=== PATIENT | female | born 1925 | race Caucasian/White ===

== ENCOUNTER 2017-06-28 15:12 | Inpatient (IN) | payer OTHER, BC ==
[~2017-06-28] VITALS: Ht 170.2 cm; Wt 90.6 kg
[~2017-06-28 15:12] MED LIST: ALPRAZOLAM0.25 M2 PO; AMBIEN5 MG PO; AMILORIDE HCL5 MG PO; APRESOLINE10 MG PO; APRESOLINE100 MG PO; ARMOUR THYROID60 M1 PO; ATORVASTATIN CA20 MG PO; Advair HFA 115/21 IH; CARAFATE1 GM PO; CATAPRES0.2 MG PO; CLONIDINE HCL0.1 MG PO; CLONIDINE HCL0.2 MG PO; Celexa PO; DELTASONE10 MG PO; DIAZEPAM5 MG PO; DILANTIN BRAND100 MG PO; HYDRALAZINE HCL10 MG PO; INDERAL LA80 MG PO; INDERAL80 MG PO; LEVAQUIN500 MG PO; LIPITOR20 MG PO; METRONIDAZOLE500 MG PO; NORVASC10 MG PO; OXYCONTIN PO; OXYIR5 MG PO; PREDNISONE10 MG PO; PRILOSEC40 MG PO; Proventil,Ventolin H IH; RESTORIL15 MG PO; SENOKOT,SENN1 TABLET PO; SYNTHROID150 MCG PO; VALIUM5 MG PO; VENTOLIN HFA18 GM IH; ZITHROMAX500 MG PO
[2017-06-28 16:00] LABS: BASOPHIL COUNT 0.2 K/uL (0-0.1); EOSINOPHIL (%) 3.7 % (0-5); EOSINOPHIL COUNT 0.5 K/uL (0-0.3); HEMATOCRIT 39.6 % (36.0-46.0); IMMATURE GRANULOCYTE (%) 0.3 % (0.0-0.7); INSTRUMENT ABS NEUTROPHIL CT 9.6 K/uL; LYMPHOCYTE COUNT 2.8 K/uL (1.0-2.8); MCH 28.2 PG (29.0-34.0); MCHC 31.8 G/DL (30.0-36.0); MCV 88.6 FL (83-99); MEAN PLAT.VOLUME 12.4 uM^3 (9.5-12.4); MONOCYTE (%) 4.5 % (3-12); MONOCYTE COUNT 0.6 K/uL (0-0.8); NEUTROPHIL (%) 69.9 % (45-76); NEUTROPHIL COUNT 9.6 K/uL (1.8-6.4); PLATELET COUNT 353 K/uL (156-360); RBC DIS.WIDTH-CV 14.8 % (11.8-14.6); RBC DIS.WIDTH-SD 47.7 % (39-53); RED BLOOD COUNT 4.47 M/uL (3.80-5.20); WHITE BLOOD COUNT 13.7 K/uL (4.1-10.2)
[2017-06-28 16:07] LABS: ADD MIUA? YES; BILIRUBIN NEGATIVE; BLOOD NEGATIVE; COLOR YELLOW ((YELLOW)); GLUCOSE (STRIP) NEGATIVE; KETONES NEGATIVE; LEUKOCYTES LARGE; NITRITE NEGATIVE; PROTEIN (STRIP) 30; SPECIFIC GRAVITY 1.016 (1.000-1.030); UROBILINOGEN 0.2 MG/DL (0.2-1.0)
[2017-06-28 16:13] LABS: CHLORIDE 105 mEq/L (99-109); POTASSIUM 4.5 mEq/L (3.7-5.4); SODIUM 139 mEq/L (136-147)
[2017-06-28 16:15] LABS: GLUCOSE 105 mg/dL (70-99)
[2017-06-28 16:17] LABS: ANION GAP 9 MEQ/L (2-14); TOTAL BILIRUBIN 0.3 mg/dL (0.0-1.0)
[2017-06-28 16:19] LABS: ALKALINE PHOSPHATASE 76 IU/L (3-129); GFR ESTIMATE (CALCULATED) 41 mL/min/
[2017-06-28 16:20] LABS: UREA NITROGEN (BUN) 32 mg/dL (9-23)
[2017-06-28 16:23] LABS: LIPASE 25 U/L (1.0-51.0)
[2017-06-28 16:23] LABS: EPITHELIAL CELLS 1+ /HPF; RED BLOOD CELLS RARE /HPF (0-5); WHITE BLOOD CELLS TNTC /HPF (0-5)
[2017-06-28 16:24] LABS: BACTERIA 3+ /HPF; CASTS PRESENT /LPF; CRYSTALS NONE SEEN; MUCUS NONE SEEN /LPF; UCUL ADDED? YES
[2017-06-28 16:25] LABS: HYALINE CASTS 0-5 /LPF
[2017-06-28] MEDS ORDERED: PROAIR HFA8.5 GM IH (17:44)
[2017-06-28] MEDS ORDERED: TYLENOL EXTRA500 MG PO (17:46)
[2017-06-28 18:36] VITALS: BP 171/79
[2017-06-28 22:56] VITALS: BP 133/58
[2017-06-29 03:18] VITALS: BP 119/55
[2017-06-29 05:39] LABS: HEMATOCRIT 36.5 % (36.0-46.0); MCH 28.3 PG (29.0-34.0); MCHC 30.7 G/DL (30.0-36.0); MCV 92.2 FL (83-99); RBC DIS.WIDTH-CV 14.9 % (11.8-14.6); RBC DIS.WIDTH-SD 50.9 % (39-53); RED BLOOD COUNT 3.96 M/uL (3.80-5.20); WHITE BLOOD COUNT 11.1 K/uL (4.1-10.2)
[2017-06-29 06:01] LABS: ANION GAP 6 MEQ/L (2-14); CHLORIDE 103 MEQ/L (99-109); GFR ESTIMATE (CALCULATED) 32 mL/min/; GLUCOSE 91 mg/dL (70-99); POTASSIUM 5.1 MEQ/L (3.7-5.4); SAMPLE HEMOLYSIS CHECK 0; SAMPLE ICTERIC CHECK 0; SAMPLE LIPEMIA CHECK 0; SODIUM 139 MEQ/L (136-147); UREA NITROGEN (BUN) 35 mg/dL (9-23)
[2017-06-29 07:05] LABS: HEMATOLOGY COMMENT 1 SMEAR COMPATIBLE; MEAN PLAT.VOLUME 12.5 uM^3 (9.5-12.4); PLAT.SUFFICIENCY ADEQUATE; PLATELET COUNT 312 K/uL (156-360)
[2017-06-29 07:45] VITALS: BP 143/63
[2017-06-29 12:36] VITALS: BP 137/71
[2017-06-29 16:34] VITALS: BP 143/79
[2017-06-29 20:00] VITALS: BP 145/67
[2017-06-30 00:03] VITALS: BP 112/55
[2017-06-30 04:31] VITALS: BP 156/66
[2017-06-30 05:49] LABS: HEMATOCRIT 34.1 % (36.0-46.0); MCHC 30.8 G/DL (30.0-36.0); MCV 90.9 FL (83-99); MEAN PLAT.VOLUME 12.4 uM^3 (9.5-12.4); PLATELET COUNT 309 K/uL (156-360); RBC DIS.WIDTH-CV 14.6 % (11.8-14.6); RBC DIS.WIDTH-SD 49.2 % (39-53); RED BLOOD COUNT 3.75 M/uL (3.80-5.20); WHITE BLOOD COUNT 11.8 K/uL (4.1-10.2)
[2017-06-30 06:12] LABS: ANION GAP 8 MEQ/L (2-14); CHLORIDE 104 MEQ/L (99-109); GFR ESTIMATE (CALCULATED) 32 mL/min/; GLUCOSE 92 mg/dL (70-99); SAMPLE HEMOLYSIS CHECK 0; SAMPLE ICTERIC CHECK 0; SAMPLE LIPEMIA CHECK 0; SODIUM 138 MEQ/L (136-147); UREA NITROGEN (BUN) 39 mg/dL (9-23)
[2017-06-30 07:10] VITALS: BP 139/65
[2017-06-30 20:00] VITALS: BP 174/90
[2017-06-30 23:42] VITALS: BP 169/84
[2017-07-01 04:02] VITALS: BP 172/72
[2017-07-01 12:18] VITALS: BP 136/96
[2017-07-01 16:37] VITALS: BP 199/81
[2017-07-01 21:30] VITALS: BP 181/74
[2017-07-02 07:39] LABS: C DIFF TOXIN NEGATIVE (NEGATIVE); PROBE CHECK PASS; SPECIMEN PROCESSING CONTROL PASS
[2017-07-02 07:45] VITALS: BP 184/78
[2017-07-02] MEDS ORDERED: FLORASTOR250 MG PO (11:12)
[2017-07-02] MEDS ORDERED: FLAGYL500 MG PO (11:15)
[2017-07-02] MEDS ORDERED: NORVASC5 MG PO (11:23)
[2017-07-02 12:13] VITALS: BP 188/81
== END 2017-07-02 13:19 | disposition home health service (06) | DRG 392 ==
LOC: EME → EDBD 15:12 → EDOF 17:36 → ENRESERV 17:37 → 5WEST 18:34
PROVIDERS: Emergency Medicine; Hospitalist; Nurse Practitioner Adult Health
DX: K57.32 Diverticulitis of large intestine without perforation or abscess without bleeding (principal); N39.0 Urinary tract infection, site not specified; B96.1 Klebsiella pneumoniae [K. pneumoniae] as the cause of diseases classified elsewhere; Z16.12 Extended spectrum beta lactamase (ESBL) resistance; R09.02 Hypoxemia; I10 Essential (primary) hypertension; J43.9 Emphysema, unspecified; E03.9 Hypothyroidism, unspecified; E78.5 Hyperlipidemia, unspecified; M54.5 Low back pain; Z59.9 Problem related to housing and economic circumstances, unspecified; F41.9 Anxiety disorder, unspecified; I25.2 Old myocardial infarction; E66.9 Obesity, unspecified; Z68.31 Body mass index [BMI] 31.0-31.9, adult; Z87.440 Personal history of urinary (tract) infections
CPT/HCPCS: 74176; 76937; 80048; 80053; 81003; 83690; 85025; 85027; 87077; 87086; 87186; 87493; 94799; 97530 GP; 99202; 99281; 99285; C1894; G0378; G8978 GP CJ; G8979 GP CI; J0696; J1335; J1650; J1885; J2270; J2405; J7030; J7050